=== PATIENT | male | born 1975 | race Caucasian/White ===

== ENCOUNTER → 2020-02-28 16:06 | Outpatient (BNVA) | payer SELFPAY | PROVIDERS: Family Provider Nurse Practitioner; PCP Nurse Practitioner; Visit Provider Nurse Practitioner | DX: I10 Essential (primary) hypertension (principal); E78.2 Mixed hyperlipidemia; R42 Dizziness and giddiness | CPT/HCPCS: 80053 ==

== ENCOUNTER → 2022-09-22 15:21 | Outpatient (BNVA) | payer SELFPAY | PROVIDERS: Family Provider Nurse Practitioner; PCP Nurse Practitioner; Visit Provider Nurse Practitioner | DX: I10 Essential (primary) hypertension (principal); E78.2 Mixed hyperlipidemia; B35.3 Tinea pedis | CPT/HCPCS: 80053; 80061; 84550; 85025 ==

== ENCOUNTER → 2022-10-23 09:19 | Outpatient (BNVA) | payer SELFPAY | PROVIDERS: Family Provider Nurse Practitioner; PCP Nurse Practitioner; Visit Provider Nurse Practitioner | DX: I10 Essential (primary) hypertension (principal); E78.2 Mixed hyperlipidemia; D72.829 Elevated white blood cell count, unspecified | CPT/HCPCS: 85025 ==